=== PATIENT | male | born 1950 | race Native Hawaiian/Other Pacific Islander ===

== ENCOUNTER → 2017-02-05 | Outpatient (CLI) | payer MEDICARE ==
--- NOTE | 2017-02-05 10:28 | US ---
EXAMINATION TYPE: US duplex aorta DATE OF EXAM: 02/05/2017 COMPARISON: NONE CLINICAL HISTORY: 66-year-old male Z13.6 Encounter for screening for cardiovascular. AAA Screening, p spikebrenda has no complaints at this time TECHNIQUE: Multiple sonographic images of the abdominal aorta are obtained. FINDINGS: [employer] E[employer]ECTIVEN[employer] MANAGER NOTES: Pt very gassy, difficult to scan EXAM MEASUREMENTS: Abdominal Aorta: Proximal: 2.3 x 2.1 cm Mid: 1.9 x 1.9 cm Distal: 1.7 x 1.6 cm Right common iliac artery: 0.8 x 1.0 cm Left common iliac artery: 1.2 x 1.1 cm IMPRESSION: Some limitations due to excessive bowel gas. No sonographic evidence for AAA.
== END | disposition home or self-care (01) ==
LOC: RADUSWWP 09:17
PROVIDERS: ATTEND Internal Medicine
DX: Z13.6 Encounter for screening for cardiovascular disorders (principal)
CPT/HCPCS: 93979

== ENCOUNTER → 2018-03-09 | Outpatient (CLI) | payer MEDICARE ==
--- NOTE | 2018-03-09 12:56 | CTL ---
EXAMINATION TYPE: CT Low Dose Lung DATE OF EXAM ORDERED: 03/09/2018 COMPARISON: None HISTORY: . Low Dose CT Lung Screening CT DLP: 121.[address] CTDI: 2.9 mGy IV CONTRAST USED: None. SCREENING VISIT: First visit COMPARISON: None. TECHNIQUE: Low dose computed tomography scan was performed through the chest at 1 millimeter thick se ctions and reconstructed images in the coronal plane at [address] DIAGNOSTIC QUALITY: Satisfactory FINDINGS: LUNG NODULES: Not presentLeft lung: no nodules identified.Right lung: no nodules identified. LUNGS: COPD: Severity: None Fibrosis: Severity:None Lymph nodes: None Other findings: Linear parenchymal scar lateral segment right middle lobe. RIGHT PLEURAL SPACE: Effusion: None Calcification: None Thickening: None Pneumothorax: None LEFT PLEURAL SPACE: Effusion: None Calcification: None Thickening: None Pneumothorax: None HEART: Heart Size: Mildly enlarged Coronary calcification: Mild Pericardial effusion: None OTHER FINDINGS: Upper abdomen: No significant abnormality Bony thorax: Degenerative changes Supraclavicular region: Right supraclavicular lipoma descending the clinically palpable abnormality m easures 4.1 x 3.2 cm. Other: No significant abnormality IMPRESSION: Benign FOLLOW UP CT CHEST RECOMMENDATION: Follow-up screening in one year CT LUNG RAD: 1 LUNG RAD CATEGORY 1
== END | disposition home or self-care (01) ==
LOC: RADCTMAIN 10:54
PROVIDERS: ATTEND Internal Medicine
DX: Z12.2 Encounter for screening for malignant neoplasm of respiratory organs (principal); F17.200 Nicotine dependence, unspecified, uncomplicated

== ENCOUNTER → 2024-04-28 | Outpatient (CLI) | payer MEDICARE ==
--- NOTE | 2024-04-28 17:25 | US ---
EXAMINATION TYPE: US thyroid st tissue head/neck DATE OF EXAM: 04/28/2024 COMPARISON: NONE CLINICAL INDICATION: Male, 73 years old with history of R22.1 LOCALIZED SWELLING, MASS AND LUMP, NECK ; Lump right neck TECHNIQUE: Grayscale and color Doppler imaging of the right neck. FINDINGS: Hypoechoic area seen 0.6 cm suggestive of lymph node. There is a hyperechoic fatty hilum. IMPRESSION: Right neck palpable area correlates with lymph node which is within normal limits for siz e with fatty hilum. [facility], , 04/28/2024 5:23 PM
== END | disposition home or self-care (01) ==
LOC: RADUSWWP 16:23
PROVIDERS: ATTEND Family Medicine
DX: R22.1 Localized swelling, mass and lump, neck (principal)
CPT/HCPCS: 76536